=== PATIENT | female | born 1985 | race Caucasian/White ===

== ENCOUNTER 2025-05-11 16:33 | Emergency (ER) | payer OTHER, SELFPAY ==
[2025-05-11 16:39] VITALS: BP 135/104
[2025-05-11 16:54] VITALS: BP 141/93
[2025-05-11 17:00] VITALS: BP 135/70
[2025-05-11 17:00] LABS: Hematocrit 38.8 % (37.0-47.0); Hemoglobin 13.2 g/dL (12.0-16.0); Mean Corp Hgb Conc. 34.0 g/dL (33.0-37.0); Mean Corpuscular Volume 87.2 fL (81.0-99.0); Nucleated Red Blood Cells % 0 %; Platelet Count 213 10^3/uL (130-400); Red Cell Dist. Width 12.9 % (11.5-14.5)
[2025-05-11 17:13] LABS: ALT (SGPT) 24 U/L (0-35); AST (SGOT) 18 U/L (14-36); Albumin 4.7 g/dl (3.5-5.0); Alkaline Phosphatase 81 U/L (38-126); Blood Urea Nitrogen 11 mg/dl (7-17); Calcium 9.5 mg/dl (8.4-10.2); Carbon Dioxide 25 mmol/L (22-30); Chloride 104 mmol/L (98-107); Glucose 114 mg/dl (70-99); Potassium 4.3 mmol/L (3.5-5.1); Sodium 138 mmol/L (135-145); Total Protein 7.5 g/dl (6.3-8.2); eGFR > 60.00
[2025-05-11 17:21] LABS: Troponin I < 0.012 ng/ml
[2025-05-11 18:00] VITALS: BP 131/66
--- NOTE | 2025-05-11 18:12 | ED.GENMED ---
History of Present Illness
General
Chief Complaint: Heart Rate Problem
Time Seen by Provider: 05/11/25 18:01
History of Present Illness
History of Present Illness:
40-year-old female presents to the emergency department for evaluation of heart palpitations associated with a dry cough and shortness of breath. She notes having URI symptoms for approximately 1 week, was febrile all last weekend, gradually
feeling better however today felt shortness of breath with exertion and occasional dry cough that correlates with the sensation of a skipped beat. Denies chest pain or leg cramping. No fevers today. Cough is generally dry. No ill contacts at
home. Does not take exogenous hormones.
Review of Systems
Review of Systems
Allergies reviewed?: Yes
All Other Systems: ROS reviewed and negative except as documented in HPI and ROS
Phy Exam
Physical Exam
Physical Exam:
GEN: Well appearing, NAD, WDWN
HEENT: Oral mucosa moist, no scleral icterus
Cardiac: Regular rate and rhythm, no murmur
Lung: No respiratory distress, no tachypnea, lungs clear to auscultation bilaterally
MSK: No gross deformity or injuries
Skin: Good color, no pallor or jaundice, no rashes
Neuro: AO x3, moves all extremities freely
Psych: Calm, cooperative
Course
Orders/Labs/Results
Orders:
Orders
05/11/25 16:36
ECG [Electrocardiogram (*1)] Urgent
Reason for Study: Palpitations
EKG- Treatment ONCE
05/11/25 16:44
CMP [Comprehensive Metabolic Panel] Urgent
Complete Blood Count/With Diff Urgent
Troponin I Urgent
05/11/25 18:12
CR Chest - 2 Views Urgent
Comment:
Reason For Exam: cough/SOB
Abnormal Lab Results
05/11/25
16:44
WBC 11.2 H 10^3/uL
(4.8-10.8)
MPV 10.7 H fL
(7.4-10.4)
Absolute Lymphs (auto) 4.3 H 10^3/uL
(1.2-3.4)
Glucose 114 H mg/dl
(70-99)
05/11/25 16:44
05/11/25 16:44
Vital Signs
Initial and Last Documented VS:
Initial Vital Signs
Temp Pulse Resp BP Pulse Ox
98.0 F 116 18 135/104 97
05/11/25 16:39 05/11/25 16:39 05/11/25 16:39 05/11/25 16:39 05/11/25 16:39
Last Documented Vital Signs
Temp Pulse Resp BP Pulse Ox
98.0 F 82 18 123/63 98
05/11/25 16:39 05/11/25 19:00 05/11/25 19:00 05/11/25 19:00 05/11/25 19:30
MDM/Problems Addressed
MDM/Problems Addressed:
Telemetry monitoring unremarkable, no evidence for dysrhythmia. Labs and chest x-ray are reassuring. She has no chest pain or active shortness of breath thus I doubt PE particularly given normal vital signs. Unclear etiology to symptoms, likely
viral respiratory illness self-limited
Comment
Comment:
EKG independently interpreted by me shows a sinus tachycardia at a rate of [address] changes concerning for ischemia
*Pulse Oximetry
SaO2: 96
Oxygen Mode of Delivery: Room air
Patient hypoxic: no
*Critical Care Note
Total Time (30-74mins, 75-104mins- exclusive of procedures): Not Applicable
ED Attending Note
-
Portions of this chart may have been created with voice recognition software.� Occasional wrong word or��sound alike� substitutions may have occurred due to the inherent limitations of voice recognition software.
Discharge Plan
Departure
Patient Disposition: Home (Routine Discharge)
Date of Disposition: 05/11/25
Time of Disposition: 19:33
Patient with high blood pressure during this ER visit?: No
Discharge Problem:
Cough, Heart palpitations
Instructions: Palpitations (DC)
Referrals:
NONE,* [Family Provider, Internal Medicine]
Interventions
Interventions:
*Risk Screen - Suicide Last Done: 05/11/25 17:43
*General Assessment Last Done: 05/11/25 17:43
*Neglect/Abuse Screening Last Done: 05/11/25 17:43
*ED- Fall Risk Assessment Last Done: 05/11/25 17:43
*ED COVID-19 Vaccine History Last Done: 05/11/25 17:43
*Nursing Disposition Last Done: 05/11/25 19:53
ED- Cardiac Assessment Last Done: 05/11/25 17:43
ED- Pulmonary Assessment Last Done: 05/11/25 17:43
Discharge Date and Time
Discharge Date/Time: 05/11/25 19:53
Print Language: WOLOF
[2025-05-11 19:00] VITALS: BP 123/63
== END 2025-05-11 19:53 | disposition home or self-care (01) ==
LOC: EMR 16:33
PROVIDERS: Emergency Medicine; EMERGENCY PHYSICIAN Student in an Organized Health Care Education/Training Program
DX: R05.9 Cough, unspecified (principal); R00.2 Palpitations; R00.0 Tachycardia, unspecified
CPT/HCPCS: 99284; 71046; 80053; 84484; 85025; 93005